=== PATIENT | male | born 1945 | race Caucasian/White ===

== ENCOUNTER 2017-09-28 16:21 | Emergency (ER) | END 2017-09-28 19:24 | disposition home or self-care (01) ==

== ENCOUNTER 2018-05-05 18:18 | Emergency (ER) | END 2018-05-05 20:28 | disposition home or self-care (01) ==

== ENCOUNTER 2018-09-18 21:36 | Observation (INO) | payer MEDICARE, OTHER ==
[~2018-09-18] VITALS: Ht 170.2 cm; Wt 76.5 kg
[~2018-09-18 21:36] MED LIST: AMLO1CAP14 PO; ATOR40TA68 PO; DAPA5TAB PO; METF500T24 PO
[2018-09-18] MEDS ORDERED: ASPIRIN 81 MG TAB PO STA (21:41)
[2018-09-18] MEDS ORDERED: NITROGLYCERIN 2% 1 GM OINT PKT TD STA (21:41)
[2018-09-18] MEDS ORDERED: NITROGLYCERIN (SL) 0.4 MG TAB SL PRN (22:00)
--- NOTE | 2018-09-18 23:06 | ERD ---
ER Documentation Chief Complaint Chief Complaint CHEST PAIN AFTER PLAYING SOCCOR; ON/OFF ALL DAY; CARDIAC HX HPI 73-year-old gentleman history of cardiac stents who presents to the emergency room with exertional chest discomfort. It appears he was playing soccer. He has had chest discomfort and dullness in the central portion of his chest on and off all day. Only minimal symptoms 1 out of 10 currently. No pleuritic pain fevers chills or cough. ROS All systems reviewed and are negative except as per history of present illness. Medications Home Meds Reported Medications Metformin Hcl* (Metformin Hcl*) 500 Mg Tablet, 500 MG PO WITH BREAKFAST DINNE, #60 TAB 05/05/18 Atorvastatin* (Atorvastatin*) 40 Mg Tablet, 40 MG PO QHS, #30 TAB 05/05/18 Dapagliflozin Propanediol (Farxiga) 5 Mg Tablet, 5 MG PO DAILY, #30 TAB 05/05/18 Amlodipine-Benazepril (Amlodipine-Benazepril) 5-40 Mg Capsule, 1 TAB PO DAILY, #30 TAB 05/05/18 Allergies Allergies: Coded Allergies: No Known Allergy (Unverified , 05/05/18) PMhx/Soc History of Surgery: Yes (hernia repair) Hx Neurological Disorder: No Hx Respiratory Disorders: No Hx Cardiac Disorders: Yes (CAD, stents, htn) Hx Psychiatric Problems: No Hx Miscellaneous Medical Probl: Yes (DM) Hx Alcohol Use: No Hx Substance Use: No Hx Tobacco Use: No Smoking Status: Never smoker FmHx Family History: No diabetes Physical Exam Vitals Vital Signs Date Temp Pulse Resp B/P (MAP) Pulse Ox O2 O2 Flow FiO2 Time Delivery Rate 09/18/18 84 16 147/84 98 23:08 (105) 09/18/18 54 16 179/78 100 Nasal 2.0 22:05 (111) Cannula 09/18/18 Nasal 2 22:03 Cannula 09/18/18 97.8 60 19 215/95 99 21:40 (135) Physical Exam General: Well developed, well nourished, no acute distress Head: Normocephalic, atraumatic. Eyes: Pupils equally reactive, EOM intact ENT: Moist mucous membranes Neck: Supple, no lymphadenopathy Respiratory: Lungs clear bilaterally, no distress Cardiovascular: RRR, no murmurs, rubs, or gallops Abdominal: Soft, non-tender, non-distended, no peritoneal signs : Deferred MSK: No edema, no unilateral swelling, 5/5 strength Neurologic: Alert and oriented, moving all extremities, normal speech, no focal weakness, no cerebellar signs Skin: No rash Psych: Normal mood Result Diagram: 09/18/18215409/18/182154 Results 24 hrs Laboratory Tests Test 09/18/18 21:55 White Blood Count 8.1 10^3/ul Red Blood Count 4.41 10^6/ul Hemoglobin 13.2 g/dl Hematocrit 38.8 % Mean Corpuscular Volume 88.0 fl Mean Corpuscular Hemoglobin 29.9 pg Mean Corpuscular Hemoglobin Concent 34.0 g/dl Red Cell Distribution Width 12.1 % Platelet Count 196 10^3/UL Mean Platelet Volume 11.1 fl Immature Granulocytes % 0.400 % Neutrophils % 59.0 % Lymphocytes % 29.0 % Monocytes % 10.2 % Eosinophils % 1.0 % Basophils % 0.4 % Nucleated Red Blood Cells % 0.0 /100WBC Immature Granulocytes # 0.030 10^3/ul Neutrophils # 4.8 10^3/ul Lymphocytes # 2.4 10^3/ul Monocytes # 0.8 10^3/ul Eosinophils # 0.1 10^3/ul Basophils # 0.0 10^3/ul Nucleated Red Blood Cells # 0.0 10^3/ul Sodium Level 137 mmol/L Potassium Level 3.8 mmol/L Chloride Level 96 mmol/L Carbon Dioxide Level 32 mmol/L Anion Gap 9 Blood Urea Nitrogen 15 mg/dl Creatinine 0.80 mg/dl Est Glomerular Filtrat Rate mL/min mL/min Glucose Level 276 mg/dl Calcium Level 9.2 mg/dl Troponin I < 0.012 ng/ml Current Medications Medications Dose Sig/Diane Start Time Status Last (Trade) Ordered Route PRN Stop Time Admin Dose Reason Admin Aspirin 162 mg ONCE STAT 09/18/18 DC 09/18/18 (Aspirin) PO 21:41 21:59 09/18/18 21:42 1 inch ONCE STAT 09/18/18 DC 09/18/18 Nitroglycerin TD 21:41 21:59 09/18/18 21:42 (Nitroglyceri n 2% Oint) 1 tab Q5M UP TO 3 1/20/19 Nitroglycerin DOSES PRN 22:00 SL CHEST (Nitroglyceri PAIN n (Sl Tab) 0.4 Mg) Ondansetron 4 mg ER BRIDGE 09/18/18 HCl (Zofran PRN IV 23:30 Inj) NAUSEA AND/OR 09/19/18 23:29 VOMITING 650 mg ER BRIDGE 09/18/18 Acetaminophen PRN PO MILD 23:30 (Tylenol PAIN(1-3)OR 09/19/18 23:29 Tab) ELEVATED TEMP Procedures/MDM EKG, MONITORS, & DIAGNOSTIC IMAGING: EKG: I reviewed and interpreted a 12-lead EKG. Rhythm: Normal sinus rhythm ST Changes: No contiguous ST segment elevations T waves: No contiguous T wave inversions Impression: [No evidence of acute cardiac ischemia] Repeat EKG: EKG: I reviewed and interpreted a 12-lead EKG. Rhythm: Normal sinus rhythm ST Changes: No contiguous ST segment elevations T waves: No contiguous T wave inversions Impression: [No evidence of acute cardiac ischemia] Chest x-ray: I reviewed and interpreted a 1 view of the chest Mediastinum: No enlargement Cardiac silhouette: No cardiomegaly Airspace: Very nonspecific interstitial process versus atelectasis Bones: No evidence of fracture PROCEDURES: [None] LAB INTERPRETATION: * Hyperglycemia negative troponin, no DKA MEDICAL DECISION MAKING: The patient's history, physical exam and clinical presentation is concerning for possible cardiogenic etiology and acute coronary syndrome. Based on the patient's clinical exam and history and risk factors, I have a much lower clinical concern for pulmonary embolism, acute aortic dissection, pneumothorax, pneumonia, cardiac tamponade HEART Score: 5 MACE Rate: 16.6% Shared Decision Making: We had a conversation regarding risk stratification, MACE rate, and the risks, benefits, alternatives of disposition planning options. Disposition planning: Admit ER COURSE: * Aspirin provided. Chest pain-free. * BP at triage was MAP 135 now 111, SBP in 170s trending down. MAP decrease 20% and appropriate CONSULTATION: [None] DISPOSITION PLAN: Telemetry admission for management of chest pain to rule out acute coronary syndrome, serial enzymes, risk stratification and consideration of provocative testing CONSULTATION: Accepting care team and consultations: I discussed the current laboratory data, diagnostic imaging and emergency care provided. Admitting team: Dr. Arreola Admitting team indication: Insurance directed Departure Diagnosis: Primary Impression: Chest pain Chest pain type: unspecified Qualified Codes: R07.9 - Chest pain, unspecified Additional Impressions: Hypertensive urgency Hyperglycemia Condition: Stable YEHUDA GARCIA MD Sep 18, 2018 23:06
[2018-09-18] MEDS ORDERED: ONDANSETRON 4 MG INJ IV PRN (23:30)
[2018-09-18] MEDS ORDERED: ACETAMINOPHEN 325 MG TAB PO PRN (23:30)
[2018-09-18 23:55] VITALS: PULSE 55
--- NOTE | 2018-09-18 23:55 | HP ---
Date/Time of Note Date/Time of Note DATE: 09/18/18 TIME: 23:55 Assessment/Plan VTE Prophylaxis Pharmacological prophylaxis: heparin Lines/Catheters IV Catheter Type (from Nrsg): Saline Lock Assessment/Plan Assessment/Plan 1. Chest pain: Rule out ACS -Supplemental oxygen, aspirin, beta-sadaf, statin. As needed nitro -EKG without ST elevation or depression -First troponin negative. Will trend -2D echo and cardiology consult 2. Hypertensive urgency: BP better controlled -Continue home meds 3. Left lung opacity, ? Pneumonia -Will obtain chest CT for further evaluation -I do not believe immediate initiation of antibiotics is warranted 4. Type 2 diabetes: Continue metformin 5. Dyslipidemia: Continue statin Result Diagram: 09/18/18215409/18/182154 Results 24hrs Laboratory Tests Test 09/18/18 21:55 White Blood Count 8.1 Red Blood Count 4.41 L Hemoglobin 13.2 L Hematocrit 38.8 L Mean Corpuscular Volume 88.0 Mean Corpuscular Hemoglobin 29.9 Mean Corpuscular Hemoglobin Concent 34.0 Red Cell Distribution Width 12.1 Platelet Count 196 Mean Platelet Volume 11.1 H Immature Granulocytes % 0.400 Neutrophils % 59.0 Lymphocytes % 29.0 Monocytes % 10.2 Eosinophils % 1.0 Basophils % 0.4 Nucleated Red Blood Cells % 0.0 Immature Granulocytes # 0.030 Neutrophils # 4.8 Lymphocytes # 2.4 Monocytes # 0.8 Eosinophils # 0.1 Basophils # 0.0 Nucleated Red Blood Cells # 0.0 Sodium Level 137 Potassium Level 3.8 Chloride Level 96 L Carbon Dioxide Level 32 H Anion Gap 9 Blood Urea Nitrogen 15 Creatinine 0.80 Est Glomerular Filtrat Rate mL/min Glucose Level 276 H Calcium Level 9.2 Troponin I < 0.012 HPI/ROS Admit Date/Time Admit Date/Time Sep 18, 2018 at 23:08 Hx of Present Illness This is a 73-year-old male with a history of hypertension, diabetes, CAD with stent who presented to ER complaining of chest pain. Pain started while he was playing soccer. It substernal, described as tightness. Reported minimal shortness of breath. When presented to ER, blood pressure was 215/95 with a heart rate of 60. First troponin and EKG negative.chest x-ray shows left retrocardiac opacity, possibly representing atelectasis or pneumonia. Patient afebrile, WBC WNL. PMH/Family/Social Past Medical History Medical History: coronary artery disease, diabetes, hypertension Medications Current Medications Nitroglycerin (Nitroglycerin (Sl Tab) 0.4 Mg) 1 tab Q5M UP TO 3 DOSES PRN SL CHEST PAIN; Start 09/18/18 at 22:00 Ondansetron HCl (Zofran Inj) 4 mg ER BRIDGE PRN IV NAUSEA AND/OR VOMITING; Start 09/18/18 at 23:30; Stop 09/19/18 at 23:29 Acetaminophen (Tylenol Tab) 650 mg ER BRIDGE PRN PO MILD PAIN(1-3)OR ELEVATED TEMP; Start 09/18/18 at 23:30; Stop 09/19/18 at 23:29 Coded Allergies: No Known Allergy (Unverified , 05/05/18) Past Surgical History Past Surgical Hx: other (Cardiac stent placement) Family History Significant Family History: no pertinent family hx Social History Alcohol Use: none Smoking Status: Never smoker Drug Use: none Exam/Review of Systems Vital Signs Vitals Vital Signs Date Temp Pulse Resp B/P (MAP) Pulse Ox O2 O2 Flow FiO2 Time Delivery Rate 09/18/18 97.9 56 20 144/68 100 Nasal 2.0 23:44 (93) Cannula Exam Constitutional: other (No acute distress) Head: normocephalic, atraumatic Eyes: EOMI, PERRL Respiratory: other (Slight decreased breath sounds on the left side) Cardiovascular: regular rate and rhythm, nl pulses Gastrointestinal: soft, non-tender Extremities: normal pulses GILBERTO MCNEIL MD Sep 18, 2018 23:55
[2018-09-19] VITALS: BP 142/67; PULSE 50; PULSE 53; RESP 19
[2018-09-19 00:20] VITALS: Ht 170.2 cm; Wt 76.5 kg
[2018-09-19] MEDS ORDERED: ACETAMINOPHEN 325 MG TAB PO PRN (00:30)
[2018-09-19] MEDS ORDERED: HYDROCODONE/APAP (5/325) TAB PO PRN ×2 (00:30)
[2018-09-19] MEDS ORDERED: ONDANSETRON 4 MG INJ IV PRN (00:30)
[2018-09-19] MEDS ORDERED: NITROGLYCERIN (SL) 0.4 MG TAB SL PRN (00:30)
[2018-09-19] MEDS ORDERED: ALBUTEROL/IPRATROPIUM (NEB) 3 ML AMP HHN PRN (00:30)
[2018-09-19] MEDS ORDERED: NACL 0.9% 3 ML SYG IV SCH (00:30)
--- NOTE | 2018-09-19 01:30 | NUR ---
Mani Note: Notified Dr. Arreola of pt's BG 229. New order to start accucheks ACHS now. Also notified that pt no longer takes Farxigo.
[2018-09-19] MEDS: INSULIN ASPART [NOVOLOG] 3 ML PEN SC SCH ×3 (01:52→11:44)
[2018-09-19] MEDS ORDERED: GLUCOSE GEL 15 GRAM TUBE BUCCAL PRN (02:00)
[2018-09-19] MEDS ORDERED: ACCU-CHEK XX SCH (02:00)
[2018-09-19] MEDS ORDERED: GLUCOSE GEL 15 GRAM TUBE PO PRN ×2 (02:00)
[2018-09-19] MEDS ORDERED: DEXTROSE 50% 50 ML SYRINGE IV PRN ×2 (02:00)
[2018-09-19] MEDS ORDERED: GLUCAGON 1 MG INJ IM PRN (02:00)
[2018-09-19 04:00] VITALS: BP 125/60; PULSE 49; PULSE 50; RESP 18
--- NOTE | 2018-09-19 07:00 | NUR ---
EOSS: Patient resting comfortably in stable condition. Pt a/o X4 and on room air. VS stable. Will endorse to oncoming RN.
[2018-09-19 07:16] VITALS: BP 142/72; PULSE 52; RESP 17
[2018-09-19 08:00] VITALS: PULSE 50
[2018-09-19] MEDS ORDERED: INSULIN ASPART [NOVOLOG] 3 ML PEN SC SCH (08:00)
[2018-09-19] MEDS ORDERED: metFORMIN 500 MG TAB PO SCH (08:00)
[2018-09-19] MEDS ORDERED: AMLODIPINE 5 MG TAB PO SCH (09:00)
[2018-09-19] MEDS ORDERED: HEPARIN 5,000 UNIT/1 ML VIAL SC SCH (09:00)
[2018-09-19] MEDS ORDERED: BENAZEPRIL 40 MG TAB PO SCH (09:00)
[2018-09-19] MEDS ORDERED: NON-FORMULARY/PATIENT OWN MED (Dapagliflozin Propanediol (Farxiga) 5 MG) PO SCH (09:00)
[2018-09-19] MEDS ORDERED: AL HYDROX/MG HYDROX/SIMETH 30 ML CUP PO PRN (10:30)
[2018-09-19] MEDS ORDERED: [UNRECOGNIZED DRUG - REMARK] XX SCH (11:00)
[2018-09-19 11:48] VITALS: BP 148/69; PULSE 53; RESP 18
[2018-09-19 12:00] VITALS: PULSE 55
--- NOTE | 2018-09-19 15:18 | NUR ---
patient is npo fpr stress test today but no orders yet by so schedule in nuc med is not available.patient insist that he will go home and do the stress test as out patient bec he has to be home for his moms b day today.trie to convice patient to wait until the test is done but he just wants to sign AMA so he can leave.spoke with kimber moy and but no way we can convince the patient to stay for the test.he took out his monitor and nurse took his heplock on the right arm ,got dressed and left.notified charge nurse of the ama.
--- NOTE | 2018-09-19 15:40 | RADRPT ---
Echocardiogram Report Patient Name: ARASH LOPEZ Gender: Male Date: 1945 Study Date: 19-Sep-2018 Shop Estimator: Mateo Mendosa [facility] Location: [id number] Ref. Physician: GILBERTO MCNEIL Quality: Adequate Procedures: Transthoracic echocardiogram with complete 2D, M-Mode, and doppler examination. Indications: Evaluate Left Ventricular function. 2D/M Mode Doppler Measurement Value Normal Ranges Measurement Value Normal Ranges LVIDd 2D 4.2 3.5 - 5.6 cm AV Peak Benson 1.5 m/sec LVIDs 2D 2.7 2.1 - 4.1 cm AV Peak PG 9.0 mmHg FS 2D 37.0 % LVOT Peak Benson 1.4 m/sec LVPWd 2D 1.4 0.6 - 1.1 cm LVOT Peak PG 8.0 mmHg IVSd 2D 1.4 0.6 - 1.1 cm MV E Peak Benson 0.7 m/sec IVS/LVPW 2D 1.0 MV A Peak Benson 1.0 m/sec AoR Diam 2D 2.5 2.0 - 3.7 cm MV E/A 0.7 LA/Ao 2D 2 0 - 1 MV Decel Time 268 msec EDV 2D 76.2 cm3 MV E/A 0.7 ESV 2D 19.0 cm3 TR Peak Benson 2.6 m/sec LA Dimen 2D 4.0 2.3 - 4.0 cm TR Peak PG 27.0 mmHg RVSP 30.0 mmHg Findings Left Ventricle: Normal left ventricular systolic function. Normal left ventricular cavity size. Mild concentric left ventricular hypertrophy. Ejection fraction is visually estimated at 65 %. Tissue Doppler/Mitral Doppler indices are consistent with impaired relaxation (Stage I diastolic dysfunction). Right Ventricle: Normal right ventricular size. Normal right ventricular systolic function. Left Atrium: The left atrium is normal in size. Right Atrium: The right atrium is normal in size. Mitral Valve: Mild mitral leaflet calcification. Mild mitral annular calcification. Trace mitral regurgitation. Aortic Valve: No significant aortic stenosis or insufficiency. Aortic cusps appear mildly calcified. Mild aortic valve regurgitation. Tricuspid Valve: Normal appearance of the tricuspid valve. Estimated peak PA systolic pressure 30 mmHg. There is mild tricuspid regurgitation. Pulmonic Valve: Pulmonic valve not well visualized. There is trace pulmonic regurgitation. Pericardium: Normal pericardium with no significant pericardial effusion. Aorta: Normal aortic root. IVC: Normal size and normal respiratory collapse consistent with normal right atrial pressure. Conclusions Normal left ventricular systolic function. Normal left ventricular cavity size. Mild concentric left ventricular hypertrophy. Ejection fraction is visually estimated at 65 %. Tissue Doppler/Mitral Doppler indices are consistent with impaired relaxation (Stage I diastolic dysfunction). Mild mitral leaflet calcification. Mild mitral annular calcification. Trace mitral regurgitation. No significant aortic stenosis or insufficiency. Aortic cusps appear mildly calcified. Mild aortic valve regurgitation. Normal appearance of the tricuspid valve. Estimated peak PA systolic pressure 30 mmHg. There is mild tricuspid regurgitation. Electronically Signed By: Quan Kaiser 19-Sep-2018 15:39:12 -0800 Patient Name: ARASH LOPEZ Study Date: 19-Sep-2018 [id number]
--- NOTE | 2018-09-19 16:22 | DS ---
Date/Time of Note Date/Time of Note DATE: 09/19/18 TIME: 16:22 Discharge Summary Admission/Discharge Info Admit Date/Time Sep 18, 2018 at 23:08 Discharge Date/Time Sep 19, 2018 at 15:05 Left AGAINST MEDICAL ADVICE Discharge Diagnosis 1. Chest pain. 2. CAD. 3. Hypertensive urgency. 4. Left retrocardiac opacity (incidental finding). 5. Diabetes mellitus type 2. Hemoglobin A1c 8.6. 6. Normocytic, normochromic anemia. Patient Condition: Fair Procedures 2D Echocardiogram Conclusions Normal left ventricular systolic function. Normal left ventricular cavity size. Mild concentric left ventricular hypertrophy. Ejection fraction is visually estimated at 65 %. Tissue Doppler/Mitral Doppler indices are consistent with impaired relaxation (Stage I diastolic dysfunction). Mild mitral leaflet calcification. Mild mitral annular calcification. Trace mitral regurgitation. No significant aortic stenosis or insufficiency. Aortic cusps appear mildly calcified. Mild aortic valve regurgitation. Normal appearance of the tricuspid valve. Estimated peak PA systolic pressure 30 mmHg. There is mild tricuspid regurgitation. CXR IMPRESSION: Left retrocardiac opacity, possibly representing atelectasis or pneumonia. Hx of Present Illness This is a 73-year-old male with a past medical history of hypertension, diabetes mellitus type 2, and CAD with coronary artery stenting who came to the emergency room with chief complaint of substernal chest pain with minimal shortness of breath. The patient was admitted to inpatient setting for further treatment and evaluation. Hospital Course The patient was admitted to inpatient setting. A cardiology consult was obtained. A 2D echocardiogram was obtained. The patient's 2D echocardiogram showed preserved left ventricular ejection fraction. The patient's troponins x3 was negative. The patient was kept n.p.o. for possible stress test and cardiology evaluation since patient has prior history of CAD and coronary artery stenting. The patient's hypertensive urgency was treated well with improved blood pressure readings towards the end of the hospital stay. The patient was maintained on statins and aspirin. The patient has a history of diabetes mellitus. The patient's hemoglobin A1c was found to be 8.6. He was maintained on metformin along with sliding scale insulin. While the patient was being waiting for cardiology evaluation, he expressed interest that he wanted to leave the hospital. The patient was informed about the necessity to be seen by traveling buyer before he can be safely discharged home. Nevertheless, the patient insisted on going home and signed AMA paper and left the hospital AGAINST MEDICAL ADVICE. The patient was seen in collaboration with Dr. Dominguez. Home Meds Reported Medications Metformin Hcl* (Metformin Hcl*) 500 Mg Tablet, 500 MG PO WITH BREAKFAST DINNE, #60 TAB 05/05/18 Atorvastatin* (Atorvastatin*) 40 Mg Tablet, 40 MG PO QHS, #30 TAB 05/05/18 Amlodipine-Benazepril (Amlodipine-Benazepril) 5-40 Mg Capsule, 1 TAB PO DAILY, #30 TAB 05/05/18 Discontinued Reported Medications Dapagliflozin Propanediol (Farxiga) 5 Mg Tablet, 5 MG PO DAILY, #30 TAB 05/05/18 Follow-up Plan No follow-up plan could be confirmed since the patient left the hospital AGAINST MEDICAL ADVICE. Primary Care Provider Not On Staff Doctor Time spent on discharge: < 30 minutes Pending Labs Laboratory Tests Test 09/18/18 21:55 09/19/18 01:01 09/19/18 01:50 09/19/18 04:00 White Blood 8.1 6.9 Count 10^3/ul (4.8-10 10^3/ul (4.8-1 .8) 0.8) Red Blood 4.41 3.86 Count 10^6/ul (4.70-6 10^6/ul (4.70- .10) 6.10) Hemoglobin 13.2 11.6 g/dl (14.0-18.0 g/dl (14.0-18. ) 0) Hematocrit 38.8 33.7 % (42.0-52.0) % (42.0-52.0) Mean 88.0 87.3 Corpuscular fl (82.0-101.0) fl (82.0-101.0 Volume ) Mean 29.9 30.1 Corpuscular pg (29.0-33.0) pg (29.0-33.0) Hemoglobin Mean 34.0 34.4 Corpuscular g/dl (32.0-37.0 g/dl (32.0-37. Hemoglobin Conc ) 0) ent Red Cell 12.1 12.2 Distribution % (11.5-14.5) % (11.5-14.5) Width Platelet Count 196 168 10^3/UL (140-41 10^3/UL (140-4 5) 15) Mean Platelet 11.1 10.8 Volume fl (7.4-10.4) fl (7.4-10.4) Immature 0.400 0.400 Granulocytes % % (0.001-0.429) % (0.001-0.429 ) Neutrophils % 59.0 56.9 % (39.0-77.0) % (39.0-77.0) Lymphocytes % 29.0 30.6 % (15.0-51.0) % (15.0-51.0) Monocytes % 10.2 10.7 % (0.0-11.0) % (0.0-11.0) Eosinophils % 1.0 % (0.0-7.0) 1.0 % (0.0-7.0) Basophils % 0.4 % (0.0-2.0) 0.4 % (0.0-2.0) Nucleated Red 0.0 0.0 Blood Cells % /100WBC (0.0-0. /100WBC (0.0-0 0) .0) Immature 0.030 0.030 Granulocytes # 10^3/ul (0.0-0. 10^3/ul (0.0-0 031) .031) Neutrophils # 4.8 3.9 10^3/ul (1.6-7. 10^3/ul (1.6-7 5) .5) Lymphocytes # 2.4 2.1 10^3/ul (0.8-2. 10^3/ul (0.8-2 9) .9) Monocytes # 0.8 0.7 10^3/ul (0.3-0. 10^3/ul (0.3-0 9) .9) Eosinophils # 0.1 0.1 10^3/ul (0.0-0. 10^3/ul (0.0-0 5) .5) Basophils # 0.0 0.0 10^3/ul (0.0-0. 10^3/ul (0.0-0 1) .1) Nucleated Red 0.0 0.0 Blood Cells # 10^3/ul (0.0-0. 10^3/ul (0.0-0 0) .0) Sodium Level 137 139 mmol/L (135-144 mmol/L (135-14 ) 4) Potassium 3.8 4.1 Level mmol/L (3.5-5.1 mmol/L (3.5-5. ) 1) Chloride Level 96 103 mmol/L (97-110) mmol/L (97-110 ) Carbon Dioxide 32 31 Level mmol/L (21-31) mmol/L (21-31) Anion Gap 9 (5-13) 5 (5-13) Blood Urea 15 mg/dl (7-20) 14 Nitrogen mg/dl (7-20) Creatinine 0.80 0.91 mg/dl (0.61-1.2 mg/dl (0.61-1. 4) 24) Est Glomerular mL/min (>60) mL/min (>60) Filtrat Rate mL/min Glucose Level 276 186 mg/dl (70-220) mg/dl (70-220) Calcium Level 9.2 9.0 mg/dl (8.4-10.2 mg/dl (8.4-10. ) 2) Troponin I < 0.012 < 0.012 ng/ml (0.000-0. ng/ml (0.000-0 120) .120) Bedside 229 253 Glucose mg/dL (70-220) mg/dL (70-220) Hemoglobin A1c 8.6 % (0-5.9) Total 0.7 Bilirubin mg/dl (0.2-1.3 ) Direct 0.00 Bilirubin mg/dl (0.00-0. 20) Indirect 0.7 Bilirubin mg/dl (0-1.1) Aspartate Amino 24 Transf (AST/SGO IU/L (15-46) T) Alanine 30 Aminotransferas IU/L (13-69) e (ALT/SGPT) Alkaline 43 Phosphatase IU/L (42-121) Creatine 133 Kinase IU/L (23-200) Creatine Kinase 1.0 Index Creatinine 1.27 Kinase MB ng/ml (0.0-2.4 (Mass) ) Total Protein 6.0 g/dl (6.1-8.1) Albumin 3.5 g/dl (3.3-4.9) Globulin 2.50 g/dl (1.3-3.2) Albumin/Globuli 1.40 n Ratio Triglycerides 86 Level mg/dl (0-149) Cholesterol 105 Level mg/dl (100-200 ) LDL 55 mg/dl Cholesterol, Calculated HDL 33 Cholesterol mg/dl (31-75) Cholesterol/HDL 3.1 RATIO Ratio Test 09/19/18 07:49 09/19/18 09:21 09/19/18 11:43 Bedside 192 239 Glucose mg/dL (70-220) mg/dL (70-220) Creatine 134 Kinase IU/L (23-200) Creatine Kinase 0.6 Index Creatinine 0.85 Kinase MB ng/ml (0.0-2.4 (Mass) ) Troponin I < 0.012 ng/ml (0.000-0 .120) BETTE ASH NP Sep 19, 2018 16:22
[2018-09-19] MEDS ORDERED: ATORVASTATIN 40 MG TAB PO SCH (21:00)
[2018-09-20] MEDS ORDERED: ASPIRIN (EC) 81 MG TAB PO SCH (09:00)
== END 2018-09-19 15:05 | disposition left against medical advice (07) ==
LOC: E/R 21:36 → 6WM 23:08
PROVIDERS: ADMIT Internal Medicine; ATTEND Internal Medicine
DX: R07.9 Chest pain, unspecified (principal); I25.10 Atherosclerotic heart disease of native coronary artery without angina pectoris; E11.9 Type 2 diabetes mellitus without complications; Z79.84 Long term (current) use of oral hypoglycemic drugs; I16.0 Hypertensive urgency
CPT/HCPCS: 36415; 71045; 80048; 80053; 80061; 82550; 82553; 82962; 83036; 84484; 85025; 93005; 93306; 99285; G0378; J1644; J1815

== ENCOUNTER 2019-05-23 08:05 | Emergency (ER) | payer MEDICARE, OTHER ==
[~2019-05-23] VITALS: Ht 170.2 cm; Wt 74.0 kg
[~2019-05-23 08:05] MED LIST changes: +AMLO1CAP PO; -AMLO1CAP14 PO; -DAPA5TAB PO
[2019-05-23 08:09] VITALS: Ht 170.2 cm; Wt 74.0 kg
[2019-05-23] MEDS ORDERED: MECLIZINE 12.5 MG TAB PO ONE (11:00)
[2019-05-23 12:15] VITALS: BP 140/76; PULSE 48; RESP 22
== END 2019-05-23 12:57 | disposition home or self-care (01) ==
LOC: E/R 08:05
DX: R42 Dizziness and giddiness (principal); I10 Essential (primary) hypertension
CPT/HCPCS: 36415; 70450; 71045; 80048; 80061; 80307; 81003; 83036; 84484; 85025; 85610; 85730; 93005